=== PATIENT | female | born 1940 ===

== ENCOUNTER 2018-07-02 06:51 | Day surgery (SDC) | payer MEDICARE ==
[~2018-07-02] VITALS: Ht 160 cm; Wt 56.7 kg
[2018-07-02] MEDS ORDERED: CARV3.125 PO (07:24)
[2018-07-02] MEDS ORDERED: LOSA25 PO (07:25)
[2018-07-02] MEDS ORDERED: AMLO10 PO (07:25)
[2018-07-02] MEDS ORDERED: ESOM20 PO (07:25)
[2018-07-02] MEDS ORDERED: METF500 (07:25)
== END 2018-07-02 08:49 | disposition home or self-care (01) ==
LOC: ORSCSDS 06:51
PROVIDERS: Internal Medicine Gastroenterology
PROC: 0DBK8ZX Excision of Ascending Colon, Via Natural or Artificial Opening Endoscopic, Diagnostic (ICD-10-PCS; principal; 2018-07-02 08:00)
DX: Z12.11 Encounter for screening for malignant neoplasm of colon (principal); D12.2 Benign neoplasm of ascending colon; K57.30 Diverticulosis of large intestine without perforation or abscess without bleeding; K64.8 Other hemorrhoids; K64.4 Residual hemorrhoidal skin tags; E11.9 Type 2 diabetes mellitus without complications; I10 Essential (primary) hypertension; Z79.899 Other long term (current) drug therapy
CPT/HCPCS: 82947; 88305; J0330; J0461; J1980; J2405; J2704; J7120